=== PATIENT | female | born 1995 | race Caucasian/White ===

== ENCOUNTER 2019-06-22 22:08 | Emergency (ER) | payer MEDICAID ==
[~2019-06-22] VITALS: Ht 162.6 cm; Wt 78.5 kg
[2019-06-22 22:36] VITALS: Ht 162.6 cm; Wt 78.5 kg
[2019-06-22 23:20] VITALS: BP 121/81
== END 2019-06-22 23:20 | disposition home or self-care (01) ==
LOC: ED 22:08
DX: H66.91 Otitis media, unspecified, right ear (principal); J02.9 Acute pharyngitis, unspecified